=== PATIENT | female | born 1990 | race Caucasian/White ===

== ENCOUNTER 2018-07-03 13:20 | Emergency (ER) | payer SELFPAY ==
--- NOTE | 2018-07-03 14:04 | EDPHY ---
H & P Time Seen by Provider: 07/03/18 13:48 HPI/ROS: CLINICAL IMPRESSION: Viral URI ASSESSMENT/PLAN: 28-year-old otherwise healthy female presents to the ED with complaints of URI symptoms with cough and nasal congestion for the last 2 days. Patient's mother did recently have influenza. Patient is otherwise healthy. Flu negative. No clinical signs of bacterial URI or lower respiratory disease. Vital signs stable, no hypoxia. No history of asthma. I encouraged patient to continue supportive care at home. Follow up with PCP. Warning signs return to ED sooner alignment discharge. DIFFERENTIAL DX: Differential diagnosis includes but not limited to viral URI, influenza, sinusitis ED PROCEDURES: See lab and/or imaging results below CHIEF COMPLAINT: Cough, nasal congestion, sore throat HPI: This is a otherwise healthy 28-year-old female who presents with 2 days of cough , nasal congestion and sore throat. Intermittent mild subjective fevers. Her mother was diagnosed with influenza 2 days ago but is feeling better and did not take Tamiflu. Patient has no underlying asthma or cardiopulmonary disease and no reported chronic medical conditions. She has been trying a variety of herbs and homeopathic treatments. PAST MEDICAL HISTORY: None reported Pertinent Past Surgical History: None reported Family History: Mother had flu recently Social History: Nonsmoker REVIEW OF SYSTEMS: A full 10 point review of systems was negative except for those mentioned in HPI. PHYSICAL EXAM: General Appearance: Alert, oriented, appropriate, cooperative, NAD, well hydrated, non-toxic appearing, VSS, no hypoxia. HEENT: TMs are clear bilaterally no perforation or FB, no injection, no evidence of serous or mucopurulent otitis. Oropharynx clear is no erythema or exudates, no tonsillar hypertrophy or asymmetry. Dentition without abnormality. Eyes: PERRLA, no acute vision change, nystagmus, swelling, discharge, pain or photosensitivity. Conjunctiva pink, no pallor or injection Neck: Supple, nontender, no lymphadenopathy, no midline pain, FROM, no meningismus. Respiratory: There are no retractions, lungs are clear to auscultation. Cardiac: Regular rate and rhythm, no murmurs or gallops. Skin: Warm, dry, no rashes, no nodules on palpation. MEDICAL DECISION MAKING: Patient was seen independently. Secondary supervising physician at time of evaluation was: Dr. Horn. Diagnosis: Viral URI. New, requires workup Summary: See Assessment and Plan for summary of ED visit Clinical lab tests: ordered / reviewed. Patient Progress: Stable. Smoking Status: Never smoked Constitutional: Initial Vital Signs Temperature (C) 36.7 C 07/03/18 13:33 Heart Rate 84 07/03/18 13:33 Respiratory Rate 16 07/03/18 13:33 Blood Pressure 103/73 07/03/18 13:33 O2 Sat (%) 97 07/03/18 13:33 O2 Delivery Mode Room Air Allergies/Adverse Reactions: No Known Allergies Allergy (Unverified 07/03/18 13:32) Home Medications: Medication Instructions Recorded NK [No Known Home Meds] 07/03/18 MDM/Departure - Depart Disposition: Home, Routine, Self-Care Clinical Impression: Viral URI Condition: Good Instructions: Viral Syndrome (ED) Additional Instructions: DISCHARGE INSTRUCTIONS FROM YOUR DOCTOR Thank you for visiting our emergency department today. Please keep in mind that discharge from the emergency department does not mean that there is nothing wrong - it simply means that we have not identified an emergency condition that requires further evaluation or treatment in the hospital. You should always plan to follow up with primary care for re-evaluation of your condition in the next 2-3 days. If you have been referred to a specialist, please call as soon as possible (today or tomorrow) to schedule your follow up appointment at the appropriate time. YOU APPEAR TO HAVE A VIRAL SYNDROME. WE DO NOT SEE EVIDENCE OF A BACTERIAL INFECTION REQUIRING ANTIBIOTICS. INFLUENZA TEST WAS NEGATIVE. PLEASE REST AT HOME, DRINK PLENTY OF FLUIDS, USE [id number] REMEDIES FOR PAIN OR FEVER, CONSIDER 3-5 DAYS OF AFRIN TO THE NOSE FOR CONGESTION, FOLLOW UP WITH A PRIMARY CARE DOCTOR, RETURN TO THE EMERGENCY DEPARTMENT FOR WORSENING PAIN, SHORTNESS OF BREATH, HIGH FEVERS, CHEST PAIN, TROUBLE STAYING HYDRATED, OR ANY OTHER CONCERN. People present with illnesses and injuries in different ways, and it is always possible that we have missed something. You may always return for re-evaluation if symptoms worsen or if they are not improving or if you develop new/different symptoms. Again, thank you for choosing our emergency department. We hope that you feel better. Referrals: NONE *PRIMARY CARE P,. [Primary Care Provider] - As per Instructions Dee Betts MD [Medical Doctor] - As per Instructions
[2018-07-03 15:14] VITALS: BP 130/86
== END 2018-07-03 15:12 | disposition home or self-care (01) ==
DX: J06.9 Acute upper respiratory infection, unspecified (principal)

== ENCOUNTER 2018-07-23 17:33 | Emergency (ER) | payer MEDICAID ==
--- NOTE | 2018-07-23 17:40 | EDPHY ---
H & P Stated Complaint: Flu like sxs, sore throat, myalgias, ear ache Time Seen by Provider: 07/23/18 17:39 HPI/ROS: HPI CHIEF COMPLAINT: Flu-like symptoms, sore throat, ear pain, muscle aches HISTORY OF PRESENT ILLNESS: 28-year-old female otherwise healthy no significant medical history does not take any daily medications per the patient presents emergency room with flu-like illness. She states over the last 24-48 hours she had sore throat, ear pain, muscle aches, joint pain. Denies any vomiting denies productive cough, denies chest pain or shortness of breath. Past Medical History: Denies significant medical history Past Surgical History: Denies significant surgical history Social History: Denies drugs alcohol tobacco. Family History: Noncontributory ROS REVIEW OF SYSTEMS: 10 Systems were reviewed and negative with the exception of the elements mentioned in the history of present illness. Exam Constitutional appears well nontoxic triage nursing summary reviewed, vital signs reviewed, awake/alert. Vital signs at triage nontoxic, stable Eyes normal conjunctivae and sclera, EOMI, PERRLA. HENT TMs bilaterally are red, posterior pharynx is erythematous without any significant exudate or swelling, normal inspection, atraumatic, moist mucus membranes, no epistaxis, neck supple/ no meningismus, no raccoon eyes. Respiratory clear to auscultation bilaterally, normal breath sounds, no respiratory distress, no wheezing. Cardiovascular rate normal, regular rhythm, no murmur, no edema, distal pulses normal. Gastrointestinal soft, non-tender, no rebound, no guarding, normal bowel sounds, no distension, no pulsatile mass. Genitourinary no CVA tenderness. Musculoskeletal no midline vertebral tenderness, full range of motion, no calf swelling, no tenderness of extremities, no meningismus, good pulses, neurovascularly intact. Skin pink, warm, & dry, no rash, skin atraumatic. Neurologic awake, alert and oriented x 3, AAOx3, moves all 4 extremities equally, motor intact, sensory intact, CN II-XII intact, normal cerebellar, normal vision, normal speech. Psychiatric normal mood/affect. Heme/Lymph/Immune no lymphadenopathy. Differential Diagnosis: Includes but is not limited to in a particular order strep pharyngitis, viral pharyngitis, otitis media, influenza Medical Decision Making: Rapid strep, influenza, and re-evaluate Re-evaluation: Patient strep test is positive. And influenza still pending. Her posterior pharynx exam does not show any significant abnormal swelling it does show mild erythema. No significant exudate. Given that her rapid strep is positive will treat with Augmentin. Recommend she takes this with food not on an empty stomach. Drink lots of fluids stay was well-hydrated She should alternate Tylenol Motrin for pain control and fever control. She is comfortable this plan understands. Source: Patient - Personal History LMP (Females 10-55): 1-7 Days Ago Current Tetanus Diphtheria and Acellular Pertussis (TDAP): Yes - Medical/Surgical History Hx Asthma: No Hx Chronic Respiratory Disease: No Hx Diabetes: No Hx Cardiac Disease: No Hx Renal Disease: No Hx Cirrhosis: No Hx Alcoholism: No Hx HIV/AIDS: No Hx Splenectomy or Spleen Trauma: No Other PMH: h pylori 2013 - Social History Smoking Status: Never smoked Constitutional: Initial Vital Signs Temperature (C) 37.3 C 07/23/18 17:34 Heart Rate 98 07/23/18 17:34 Respiratory Rate 18 07/23/18 17:34 Blood Pressure 121/63 H 07/23/18 17:34 O2 Sat (%) 97 07/23/18 17:34 O2 Delivery Mode Room Air Allergies/Adverse Reactions: No Known Allergies Allergy (Verified 07/23/18 17:34) Home Medications: Medication Instructions Recorded Amoxicillin/Clavulanate Pot 875 mg PO BID #14 tab 07/23/18 [Augmentin 875 MG TAB (*)] Medical Decision Making - Data Points Laboratory Results: 07/23/18 17:45 Nasal Influenza A PCR Pending Nasal Influenza B PCR Pending Group A Strep Screen POSITIVE H (NEGATIVE) Medications Given: Discontinued Medications Acetaminophen (Tylenol) 1,000 mg PO EDNOW ONE Stop: 07/23/18 17:58 Last Admin: 07/23/18 18:02 Dose: 1,000 mg Ibuprofen (Motrin) 800 mg PO EDNOW ONE Stop: 07/23/18 17:58 Last Admin: 07/23/18 18:02 Dose: 800 mg Departure - Departure Disposition: Home, Routine, Self-Care Clinical Impression: Strep pharyngitis Condition: Good Instructions: Pharyngitis (ED), Strep Throat (ED) Additional Instructions: 1. Drink lots of fluids stay well-hydrated 2. Antibiotics as prescribed 3. Recommend you alternate Tylenol and Motrin every 6-8 hours. 4. Return to the ER if worse. Referrals: NONE *PRIMARY CARE P,. [Primary Care Provider] - As per Instructions Prescriptions: Amoxicillin/Clavulanate Pot [Augmentin 875 MG TAB (*)] 875 mg PO BID #14 tab
[2018-07-23] MEDS ORDERED: IBUPROFEN 800 MG TAB PO ONE (17:57)
[2018-07-23] MEDS ORDERED: ACETAMINOPHEN 500 MG TAB PO ONE (17:57)
[2018-07-23] MEDS ORDERED: AMOXICILLIN/CLAVULANATE POT 875/125 MG TAB PO ONE (18:22)
[2018-07-23 18:42] VITALS: BP 136/75
== END 2018-07-23 18:46 | disposition home or self-care (01) ==
LOC: SUPCPDRO 17:33
DX: J02.0 Streptococcal pharyngitis (principal)

== ENCOUNTER 2018-10-16 17:30 | Emergency (ER) | payer MEDICAID ==
--- NOTE | 2018-10-16 17:39 | EDPHY ---
H & P Stated Complaint: uti, "shooting pain in my ovaries" Time Seen by Provider: 10/16/18 17:39 HPI/ROS: HPI CHIEF COMPLAINT: Sudden onset pelvic pain. HISTORY OF PRESENT ILLNESS: Patient is a 28-year-old female she arrives to emergency room with pelvic pain. States this abruptly started 20 min ago. She states this started abruptly. She was not doing anything particular. Sharp stabbing pain lower pelvic region. She reports this came on all the sudden. She was not doing any particular denies any trauma. No intercourse. She does report to me that she has been self treating a urinary tract infection for the past 3 days. She denies any fever, back pain, vomiting, diarrhea. Denies being , denies abnormal vaginal discharge. Last menstrual period was 2 weeks ago. Denies being . Denies back pain or fever. Past Medical History: Denies significant medical history Past Surgical History: Denies significant surgical history Social History: Denies drugs alcohol tobacco Family History: Noncontributory ROS REVIEW OF SYSTEMS: 10 Systems were reviewed and negative with the exception of the elements mentioned in the history of present illness. Exam Constitutional triage nursing summary reviewed, vital signs reviewed, awake/ alert. Eyes normal conjunctivae and sclera, EOMI, PERRLA. HENT normal inspection, atraumatic, moist mucus membranes, no epistaxis, neck supple/ no meningismus, no raccoon eyes. Respiratory clear to auscultation bilaterally, normal breath sounds, no respiratory distress, no wheezing. Cardiovascular rate normal, regular rhythm, no murmur, no edema, distal pulses normal. Gastrointestinal mild tender palpation lower abdomen specifically suprapubic and bilateral adnexal regions, no rebound, no guarding, normal bowel sounds, no distension, no pulsatile mass. Genitourinary no CVA tenderness. Musculoskeletal no midline vertebral tenderness, full range of motion, no calf swelling, no tenderness of extremities, no meningismus, good pulses, neurovascularly intact. Skin pink, warm, & dry, no rash, skin atraumatic. Neurologic awake, alert and oriented x 3, AAOx3, moves all 4 extremities equally, motor intact, sensory intact, CN II-XII intact, normal cerebellar, normal vision, normal speech. Psychiatric normal mood/affect. Heme/Lymph/Immune no lymphadenopathy. Differential Diagnosis: Differential diagnosis includes but is not limited to and in no particular order: , ovarian torsion, ruptured ovarian cyst, cystitis, bladder spasms Bowel obstruction, appendicitis, gallbladder disease, diverticulitis, colitis, enteritis, perforated viscus, gastritis, GERD, esophagitis, urinary tract infection, pyelonephritis, kidney stones Medical Decision Making: Plan for this patient IV establishment with basic labs , urinalysis, test, IV Toradol for pain control, pelvic ultrasound. Re-evaluate Re-evaluation: Ultrasound of the pelvis called to me by Dr. James. Shows small volume free fluid most likely from hemorrhagic ovarian follicle. No torsion of either ovaries. Labs reviewed. No high white blood cell count. Ultrasound reviewed shows most likely a ruptured hemorrhagic follicle. 210: I did re-evaluate her the patient is resting comfortably no acute distress. Feels much better after IV fluids and IV anti-inflammatory pain medicine. On re-examination she does have some mild lower pelvic pain. No peritoneal signs. She is feeling much better. She would like to go home. We discussed return precautions she understands return to the emergency room she develops worsening abdominal pain, fever, vomiting, not doing well. She has no right lower quadrant pain on exam. I did explain that we did not evaluate her appendix with CT scan as most likely this is ovarian hemorrhagic follicle. However she does understand that if she develops worsening abdominal pain, fever , vomiting she needs return to the emergency room she understands this and is comfortable this plan. Source: Patient - Personal History LMP (Females 10-55): 15-21 Days Ago Current Tetanus/Diphtheria Vaccine: No Current Tetanus Diphtheria and Acellular Pertussis (TDAP): No - Medical/Surgical History Hx Asthma: No Hx Chronic Respiratory Disease: No Hx Diabetes: No Hx Cardiac Disease: No Hx Renal Disease: No Hx Cirrhosis: No Hx Alcoholism: No Hx HIV/AIDS: No Hx Splenectomy or Spleen Trauma: No Other PMH: h pylori 2013 - Social History Smoking Status: Never smoked Constitutional: Initial Vital Signs Temperature (C) 36.5 C 10/16/18 17:31 Heart Rate 80 10/16/18 17:31 Respiratory Rate 16 10/16/18 17:31 Blood Pressure 121/76 H 10/16/18 17:31 O2 Sat (%) 99 10/16/18 17:31 O2 Delivery Mode Room Air Allergies/Adverse Reactions: No Known Allergies Allergy (Verified 10/16/18 17:34) Home Medications: Medication Instructions Recorded Ibuprofen [Motrin (*)] 800 mg PO Q6-8PRN #10 tab 10/16/18 Medical Decision Making - Data Points Laboratory Results: Laboratory Results 10/16/18 17:40 10/16/18 17:40 Medications Given: Discontinued Medications Hydrocodone Bitart/Acetaminophen ([place] 5/325mg Prepack#6) 1 btl TAKEHOME EDNOW ONE Stop: 10/16/18 21:06 Last Admin: 10/16/18 21:20 Dose: 1 btl Sodium Chloride (Ns) 1,000 mls @ 0 mls/hr IV EDNOW ONE; Wide Open PRN Reason: Protocol Stop: 10/16/18 17:44 Last Admin: 10/16/18 17:46 Dose: 1,000 mls Ketorolac Tromethamine (Toradol) 15 mg IVP EDNOW ONE Stop: 10/16/18 17:45 Last Admin: 10/16/18 17:46 Dose: 15 mg Ondansetron HCl (Zofran) 4 mg IVP EDNOW ONE Stop: 10/16/18 17:44 Last Admin: 10/16/18 18:38 Dose: Not Given Departure - Departure Disposition: Home, Routine, Self-Care Clinical Impression: Abdominal pain Qualifiers: Abdominal location: lower abdomen, unspecified Qualified Code(s): R10.30 - Lower abdominal pain, unspecified Condition: Good Instructions: Ruptured Ovarian Cyst (ED) Additional Instructions: 1. Take it easy over the next 72 hr rest. Stay well-hydrated 2. Return emergency room if he develops worsening abdominal pain, fever, vomiting, not doing well. 3. I do recommend you take anti-inflammatory pain medicine alternating Tylenol and/or Motrin every 6-8 hours for pain control. This will help with ruptured ovarian cyst pain. No aspirin. 4. Please return to the emergency room if you have worsening symptoms Referrals: Patient,NotPresent [Primary Care Provider] - As per Instructions Nessa Abdi MD [Medical Doctor] - As per Instructions Prescriptions: Ibuprofen [Motrin (*)] 800 mg PO Q6-8PRN #10 tab
[2018-10-16] MEDS ORDERED: ONDANSETRON 4 MG/2 ML VIAL IVP ONE (17:43)
[2018-10-16] MEDS ORDERED: NS 1,000 ML IV ONE (17:43)
[2018-10-16] MEDS ORDERED: KETOROLAC 15 MG/1 ML SDV IVP ONE (17:44)
[2018-10-16 18:04] LABS: PLATELET COUNT 413 10^3/uL (150-400)
[2018-10-16] MEDS ORDERED: HYDROCOD/APAP 5/325 PREPACK#6 BTL TAKEHOME ONE (21:05)
[2018-10-16 21:28] VITALS: BP 114/67
== END 2018-10-16 21:28 | disposition home or self-care (01) ==
DX: R10.30 Lower abdominal pain, unspecified (principal); E86.9 Volume depletion, unspecified
CPT/HCPCS: 96374; J1885; J2405